=== PATIENT | female | born 1975 | race Caucasian/White ===

== ENCOUNTER 2023-11-14 18:26 | Inpatient (IN) ==
[2023-11-14 19:51] LABS: Basophils # (Auto) 0.04 K/mcL (0.00-0.30); Basophils % (Auto) 0.6 % (0.0-2.0); Eosinophils # (Auto) 0.12 K/mcL (0.00-0.70); Eosinophils % (Auto) 1.7 % (0.0-7.0); Hematocrit 40.7 % (34.1-44.9); Hemoglobin 13.5 g/dL (11.2-15.7); Lymphocytes % (Auto) 45.8 % (15.5-49.0); Mean Cell Volume 83.6 fL (80.0-100.0); Mean Corpuscular HGB Conc 33.2 g/dL (31.0-36.0); Mean Platelet Volume 9.6 fL (8.8-12.5); Monocytes # (Auto) 0.73 K/mcL (0.10-0.90); Monocytes % (Auto) 10.5 % (1.0-12.0); Neutrophils % (Auto) 41.3 % (38.0-78.0); Platelet Count 280 K/mcL (140-440); RBC 4.87 M/mcL (3.59-5.38); Red Cell Distribution Width 15.3 % (11.5-14.5)
[2023-11-14 19:58] LABS: ALT/SGPT 25 U/L (<40); AST/SGOT 46 U/L (<32); Albumin 3.9 gm/dL (3.2-5.2); Albumin/Globulin Ratio 1.3 (1.0-2.3); Alkaline Phosphatase 155 U/L (39-117); Bilirubin,Total 0.3 mg/dL (0.1-1.0); Blood Urea Nitrogen 11 mg/dL (6-20); Calcium 9.7 mg/dL (8.6-10.4); Carbon Dioxide 23 mmol/L (22-30); Chloride 102 mmol/L (96-108); Globulin 2.9 gm/dL (2.2-3.7); Glomerular Filtration Rate 66; Glucose 126 mg/dL (70-105); Potassium 3.3 mmol/L (3.3-5.1); Sodium 138 mmol/L (133-145)
[2023-11-14 20:08] LABS: Appearance,Urine Cloudy (Clear); Bacteria,Urine Few /hpf (0); Bilirubin,Urine Negative (Negative); Color,Urine Yellow; Glucose,Urine (UA) Negative (Negative); Ketones,Urine Trace mg/dL (Negative); Leukocyte Esterase,Urine Moderate /uL (Negative); Nitrate,Urine Negative (Negative); Protein,Urine >=300 mg/dL (Negative); Specific Gravity,Urine 1.025 (1.000-1.035); Urine Blood Large ery/mcL (Negative); Urine RBC > 182 /hpf (0-1); Urine Squamous Epithelial Cell 2 /hpf (0-4); Urine WBC > 182 /hpf (0-4); Urobilinogen,Urine Normal
[2023-11-14] MEDS: VANCOMYCIN PER PHARMACY IV ONE (21:09)
[2023-11-14] MEDS: VANCOMYCIN 1,500 MG in 0.9 % SODIUM CHLORIDE 500 ML IV ONE (21:09)
[2023-11-14] MEDS ORDERED: SENNOSIDES 1 TABLET PO PRN (21:44)
[2023-11-14] MEDS ORDERED: POLYETHYLENE GLYCOL 3350 17 GM PACKET PO PRN (21:44)
[2023-11-14] MEDS: GABAPENTIN 300 MG CAPSULE PO SCH (23:05)
[2023-11-14] MEDS: 0.9 % SODIUM CHLORIDE 10 ML SYRINGE IV SCH (23:10)
[2023-11-15] MEDS: HYDROcodone/APAP 10/325MG TABLET PO PRN (04:41)
[2023-11-15 06:58] LABS: Basophils # (Auto) 0.05 K/mcL (0.00-0.30); Basophils % (Auto) 0.8 % (0.0-2.0); Eosinophils # (Auto) 0.24 K/mcL (0.00-0.70); Eosinophils % (Auto) 3.7 % (0.0-7.0); Hematocrit 43.5 % (34.1-44.9); Hemoglobin 13.7 g/dL (11.2-15.7); Lymphocytes # (Auto) 3.26 K/mcL (1.50-4.80); Lymphocytes % (Auto) 50.1 % (15.5-49.0); Mean Cell Volume 87.5 fL (80.0-100.0); Mean Corpuscular HGB Conc 31.5 g/dL (31.0-36.0); Mean Platelet Volume 9.7 fL (8.8-12.5); Monocytes % (Auto) 10.8 % (1.0-12.0); Neutrophils % (Auto) 34.4 % (38.0-78.0); Platelet Count 277 K/mcL (140-440); RBC 4.97 M/mcL (3.59-5.38); Red Cell Distribution Width 15.7 % (11.5-14.5); WBC 6.5 K/mcL (4.5-11.0)
[2023-11-15 07:25] LABS: Blood Urea Nitrogen 11 mg/dL (6-20); Calcium 9.6 mg/dL (8.6-10.4); Carbon Dioxide 21 mmol/L (22-30); Chloride 103 mmol/L (96-108); Glomerular Filtration Rate 75; Glucose 110 mg/dL (70-105); Potassium 3.1 mmol/L (3.3-5.1); Sodium 141 mmol/L (133-145)
[2023-11-15] MEDS: POTASSIUM CHLORIDE 20 MEQ PACKET PO ONE (07:48)
[2023-11-15] MEDS: TOPIRAMATE 25 MG TABLET PO SCH (09:16)
[2023-11-15] MEDS: DULoxetine 30 MG CAPSULE PO SCH (09:16)
[2023-11-15] MEDS: ENOXAPARIN 40 MG/0.4 ML SYRINGE SQ SCH (09:17)
[2023-11-15] MEDS ORDERED: VANCOMYCIN PER PHARMACY IV SCH (10:15)
[2023-11-15] MEDS: Teriflunomide 14 mg tablet PO SCH (11:49)
[2023-11-15] MEDS: VANCOMYCIN 1,500 MG in 0.9 % SODIUM CHLORIDE 500 ML IV SCH (11:52)
[2023-11-16 06:55] LABS: Basophils # (Auto) 0.05 K/mcL (0.00-0.30); Basophils % (Auto) 0.8 % (0.0-2.0); Eosinophils # (Auto) 0.32 K/mcL (0.00-0.70); Eosinophils % (Auto) 5.4 % (0.0-7.0); Hemoglobin 12.7 g/dL (11.2-15.7); Lymphocytes # (Auto) 2.53 K/mcL (1.50-4.80); Lymphocytes % (Auto) 42.7 % (15.5-49.0); Mean Cell Volume 86.6 fL (80.0-100.0); Mean Corpuscular HGB Conc 31.8 g/dL (31.0-36.0); Mean Platelet Volume 9.9 fL (8.8-12.5); Monocytes # (Auto) 0.61 K/mcL (0.10-0.90); Monocytes % (Auto) 10.3 % (1.0-12.0); Neutrophils % (Auto) 40.6 % (38.0-78.0); Platelet Count 251 K/mcL (140-440); RBC 4.62 M/mcL (3.59-5.38); Red Cell Distribution Width 15.8 % (11.5-14.5); WBC 5.9 K/mcL (4.5-11.0)
[2023-11-16 07:38] LABS: Blood Urea Nitrogen 13 mg/dL (6-20); Calcium 9.3 mg/dL (8.6-10.4); Carbon Dioxide 22 mmol/L (22-30); Chloride 107 mmol/L (96-108); Glomerular Filtration Rate 86; Glucose 109 mg/dL (70-105); Potassium 3.8 mmol/L (3.3-5.1); Sodium 141 mmol/L (133-145)
[2023-11-16] MEDS: FLUCONAZOLE 100 MG TABLET PO SCH (09:03)
[2023-11-16] MEDS: LINEZOLID 600 MG TABLET PO SCH (21:03)
[2023-11-17 06:04] LABS: Basophils # (Auto) 0.06 K/mcL (0.00-0.30); Basophils % (Auto) 0.8 % (0.0-2.0); Eosinophils # (Auto) 0.38 K/mcL (0.00-0.70); Eosinophils % (Auto) 5.3 % (0.0-7.0); Hematocrit 40.4 % (34.1-44.9); Hemoglobin 12.9 g/dL (11.2-15.7); Lymphocytes # (Auto) 3.02 K/mcL (1.50-4.80); Lymphocytes % (Auto) 42.3 % (15.5-49.0); Mean Cell Volume 87.4 fL (80.0-100.0); Mean Corpuscular HGB Conc 31.9 g/dL (31.0-36.0); Mean Platelet Volume 9.4 fL (8.8-12.5); Monocytes % (Auto) 9.8 % (1.0-12.0); Neutrophils % (Auto) 41.5 % (38.0-78.0); Platelet Count 227 K/mcL (140-440); RBC 4.62 M/mcL (3.59-5.38); Red Cell Distribution Width 16.1 % (11.5-14.5); WBC 7.1 K/mcL (4.5-11.0)
[2023-11-17 06:30] LABS: Blood Urea Nitrogen 13 mg/dL (6-20); Calcium 9.5 mg/dL (8.6-10.4); Carbon Dioxide 23 mmol/L (22-30); Chloride 105 mmol/L (96-108); Glomerular Filtration Rate 86; Glucose 101 mg/dL (70-105); Potassium 3.8 mmol/L (3.3-5.1); Sodium 139 mmol/L (133-145)
[2023-11-17 07:09] LABS: Vancomycin,Random 10.6 ug/mL
[2023-11-18 07:27] LABS: ALT/SGPT 22 U/L (<40); AST/SGOT 41 U/L (<32); Albumin 3.8 gm/dL (3.2-5.2); Albumin/Globulin Ratio 1.5 (1.0-2.3); Alkaline Phosphatase 139 U/L (39-117); Bilirubin,Direct < 0.2 mg/dL (0-0.3); Bilirubin,Total < 0.2 mg/dL (0.1-1.0); Blood Urea Nitrogen 14 mg/dL (6-20); Calcium 9.7 mg/dL (8.6-10.4); Carbon Dioxide 23 mmol/L (22-30); Chloride 103 mmol/L (96-108); Globulin 2.5 gm/dL (2.2-3.7); Glomerular Filtration Rate 75; Glucose 105 mg/dL (70-105); Lactate Dehydrogenase 132 U/L (135-225); Phosphorous 4.1 mg/dL (2.5-4.5); Sodium 139 mmol/L (133-145); Triglycerides 225 mg/dL (<150); Uric Acid 7.1 mg/dL (2.5-8.0)
[2023-11-18] MEDS: DULoxetine 30 MG CAPSULE PO SCH (08:03)
[2023-11-18] MEDS ORDERED: DULoxetine 30 MG CAPSULE PO SCH (09:00)
[2023-11-18] MEDS: ONDANSETRON 4 MG/2 ML VIAL IV PRN (11:48)
[2023-11-18] MEDS: PHENAZOPYRIDINE 200 MG TABLET PO SCH (11:49)
[2023-11-18] MEDS: ACETAMINOPHEN 325 MG TABLET PO PRN (17:25)
[2023-11-18] MEDS: traZODone HCL 50 MG TABLET PO PRN (20:30)
== END 2023-11-19 12:35 | disposition home or self-care (01) | DRG 690 ==
LOC: ED 18:26 → MEDSUR 21:42
PROVIDERS: ADMIT Student in an Organized Health Care Education/Training Program; ATTEND Internal Medicine